=== PATIENT | female | born 1990 | race Caucasian/White ===

== ENCOUNTER 2017-11-10 09:57 | Emergency (ER) | payer OTHER ==
[~2017-11-10] VITALS: Ht 160 cm; Wt 78.5 kg
[2017-11-10 10:00] VITALS: Ht 160 cm; Wt 78.5 kg
[2017-11-10 11:44] VITALS: BP 114/83
== END 2017-11-10 11:44 | disposition home or self-care (01) ==
LOC: ED 09:57
DX: F41.0 Panic disorder [episodic paroxysmal anxiety] (principal); S60.221A Contusion of right hand, initial encounter; Q78.0 Osteogenesis imperfecta; X58.XXXA Exposure to other specified factors, initial encounter; Y93.89 Activity, other specified; Y92.89 Other specified places as the place of occurrence of the external cause; Y99.8 Other external cause status
CPT/HCPCS: Q0092

== ENCOUNTER 2020-12-12 10:42 | Emergency (ER) | payer OTHER ==
[~2020-12-12] VITALS: Ht 157.5 cm; Wt 78.0 kg
[2020-12-12 10:50] VITALS: BP 126/84; Ht 157.5 cm; Wt 78.0 kg
== END 2020-12-12 11:55 | disposition home or self-care (01) ==
LOC: ED 10:42
DX: S61.012A Laceration without foreign body of left thumb without damage to nail, initial encounter (principal); X58.XXXA Exposure to other specified factors, initial encounter; Y93.89 Activity, other specified; Y92.89 Other specified places as the place of occurrence of the external cause; Y99.8 Other external cause status
CPT/HCPCS: 90715